=== PATIENT | male | born 1995 | race African-American/Black ===

== ENCOUNTER 2017-08-15 17:30 | Emergency (ER) | payer MEDICAID ==
[~2017-08-15] VITALS: Ht 180.3 cm; Wt 70.5 kg
[2017-08-15] MEDS ORDERED: PARO10TA89 PO (17:50)
[2017-08-15] MEDS ORDERED: IBUPROFEN 800 MG TABLET PO ONE (18:45)
[2017-08-15 19:31] VITALS: BP 138/82
== END 2017-08-15 19:34 | disposition home or self-care (01) ==
LOC: EMS 17:32
DX: S00.531A Contusion of lip, initial encounter (principal); F17.210 Nicotine dependence, cigarettes, uncomplicated; W21.05XA Struck by basketball, initial encounter; Y93.89 Activity, other specified; Y92.89 Other specified places as the place of occurrence of the external cause; Y99.8 Other external cause status
CPT/HCPCS: 99282; 99406